=== PATIENT | female | born 1930 | race Caucasian/White ===

== ENCOUNTER 2018-06-05 01:27 | Inpatient (IN) | payer MEDICARE ==
[2018-06-05] MEDS ORDERED: Ondansetron INJ* 2 MG/ML VIAL IV PRN ×2 (02:00→18:42)
[2018-06-05] MEDS ORDERED: Al Hydrox/Mg Hydrox/Simet LIQ* 30 ML UDC PO PRN (02:00)
[2018-06-05 02:09] LABS: ABS Basophils 0 10^3/ul (0-0.2); ABS Eosinophils 0 10^3/ul (0-0.6); ABS Lymphocytes 1.3 10^3/ul (1.0-4.8); ABS Monocytes 0.4 10^3/ul (0-0.8); ABS Neutrophils 5.8 10^3/ul (1.5-7.7); ABS Nucleated RBC 0 10^3/ul; Eosinophil % 0 %; Hematocrit 41 % (33-41); Hemoglobin 13.9 g/dL (12.0-16.0); Lymphocyte % 17.2 %; Mean Corpuscular HGB Conc 34 g/dL (31-36); Mean Corpuscular Hemoglobin 29 pg (27-31); Mean Corpuscular Volume 85 fL (80-97); Mean Platelet Volume 9.7 fL (7.4-10.4); Nucleated Red Blood Cells % 0; Platelet Count 227 10^3/uL (150-450); Red Blood Count 4.83 10^6 /uL (3.70-4.87); Red Cell Distribution Width 15 % (10.5-15); White Blood Count 7.5 10^3/uL (3.5-10.8)
[2018-06-05 02:19] LABS: Activated Partial Thrombo Time 36.6 seconds (26.0-36.3); INR 1.24 (0.82-1.09)
[2018-06-05 02:32] LABS: ALT 12 U/L (7-52); AST 12 U/L (13-39); Albumin 3.7 g/dL (3.2-5.2); Albumin/Globulin Ratio 1.3 (1-3); Alkaline Phosphatase 69 U/L (34-104); Anion Gap 11 mmol/L (2-11); BUN/Creatinine Ratio 23.2 (8-20); Blood Urea Nitrogen 16 mg/dL (6-24); CO2 Carbon Dioxide 28 mmol/L (22-32); Calcium 8.8 mg/dL (8.6-10.3); Chloride 105 mmol/L (101-111); EGFR African American 96.9 (>60); EGFR Non-African American 80.1 (>60); Globulin 2.8 g/dL (2-4); Glucose 164 mg/dL (70-100); Potassium 3.3 mmol/L (3.5-5.0); Sodium 144 mmol/L (135-145); Total Protein 6.5 g/dL (6.4-8.9)
[2018-06-05 02:34] LABS: Troponin I 0.14 ng/mL (<0.04)
[2018-06-05] MEDS ORDERED: Potassium Chlor TAB* 20 MEQ TAB.ER PO ONE ×2 (02:43→06:25)
[2018-06-05] MEDS: Clopidogrel TAB* 75 MG PO SCH ×2 (03:46→09:58)
--- NOTE | 2018-06-05 05:00 | HP ---
CC: Jayshree Rene MD* HISTORY AND PHYSICAL: DATE OF ADMISSION: 06/05/18 TIME OF EVALUATION: 0200. PRIMARY CARE PHYSICIAN: Jayshree Rene MD. CHIEF COMPLAINT: Chest pain and shortness of breath. HISTORY OF PRESENT ILLNESS: This is an 88-year-old female with past medical history of congestive heart failure and hypertension who presented to the ICU as a direct admission from [facility] for positive troponin. The patient was admitted on 06/04/18 for complaints of progressive shortness of breath and chest pain. On admission, she was found to have chest x-ray reading suggestive of congestive heart failure. EKG also showed second-degree heart block, which is new for her, and she was also hypertensive in the 200s. Her initial cardiac enzymes were unremarkable, so she was admitted into [facility] for diuresis. Her repeat troponin was elevated and they were concerned about this chest pain, so they requested direct admission in the setting of her second -degree heart block and bradycardia in the 30s. The patient was directly admitted to the ICU. On arrival, the patient is currently chest pain free, she is nauseated, and she is in heart block with a heart rate in the 30s. She states she has had for the past 2 nights this shortness of breath and some epigastric pain radiating across both sides of her chest. She does have a history of esophageal stricture. She thought maybe that was what it was related to. She states she cannot lie flat, that she sleeps with 8 pillows. She sits on the edge of the bed. She is unsure about her weight. She does not weigh herself, but she has noted lower extremity swelling. She is nauseated and she is vomiting up frothy sputum. She has had several hospitalizations, she states, at [facility] last month, 1 for UTI; which she states was not really UTI, and also for influenza. Otherwise, remaining review of systems is negative. PAST MEDICAL HISTORY: 1. History of congestive heart failure. 2. History of fatty liver disease. 3. History of small-bowel obstruction. 4. Hypertension. 5. Metabolic syndrome. 6. Morbid obesity. 7. Multinodular goiter. 8. Hypothyroidism. 9. History of transient global amnesia. 10. Anxiety. 11. History of esophageal stricture s/p dilatation MEDICATIONS: According to the records at [facility]: 1. Xanax 0.25 mg b.i.d. as needed. 2. Synthroid 50 mcg daily. 3. Vitamin B12 at 1000 mcg daily. 4. Tylenol 325 mg as needed. 5. Cholecalciferol/vitamin D 3 times by mouth b.i.d. 6. Fluticasone 50 mcg b.i.d. 7. Nitro sublingual. 8. Ranitidine 150 mg p.o. b.i.d. 9. Diclofenac 4 g 4 times a day as needed. 10. Beclomethasone spray b.i.d. 11. Metoprolol tartrate 100 mg p.o. b.i.d. 12. Clonidine 0.2 mg p.o. b.i.d. 13. Benzonatate 200 mg p.o. t.i.d. as needed for cough. 14. Meclizine 25 mg b.i.d. as needed for vertigo. ALLERGIES: AMLODIPINE, ATORVASTATIN, DEPAKOTE, CODEINE, ESOMEPRAZOLE, HYDROCHLOROTHIAZIDE, IBUPROFEN, PAROXETINE, PENICILLIN, BRIMONIDINE, PROPOXYPHENE, SHELLFISH ALLERGY, SIMVASTATIN, SPIRONOLACTONE, TRAMADOL, LOSARTAN. FAMILY HISTORY: Reviewed and noncontributory. SOCIAL HISTORY: The patient is home-bound. She lives alone, but she has several family members who check on her frequently including her son, daughter- in-law, and grandson. She ambulates with a walker and a cane. No tobacco, alcohol, or illicit drug use history. Her son is her healthcare proxy. Code Status: She states she would like to be a DNR/DNI. REVIEW OF SYSTEMS: Fourteen-point review of systems was as mentioned in the HPI ; otherwise, negative. PHYSICAL EXAMINATION GENERAL: In no acute distress, mildly anxious. VITAL SIGNS: Temp 98.2, pulse rate 39, respiratory rate 16, oxygen saturation 93% on 2 L, and blood pressure 176/60. HEENT: Head normocephalic. Pupils are equal and reactive, anicteric. Oropharynx: Mucous membranes are moist. NECK: Supple without lymphadenopathy. RESPIRATORY: Diminished breath sounds bilaterally. Bibasilar rales. No increased work of breathing. CARDIAC: Bradycardia with systolic murmur heard throughout. ABDOMEN: Morbidly obese, soft, nontender, and nondistended. EXTREMITIES: +2 pretibial edema, +1 DP. NEUROLOGIC: Alert, awake, and oriented x3. No gross focal neurologic deficits. DIAGNOSTIC STUDIES/LAB DATA: Radiographic Data: EKG: I suspect this is a second-degree type II heart block. Laboratory Data: White count 7.5, hemoglobin 13.9, hematocrit 41, platelets 227. INR is 1.24. Sodium 144, potassium 3.3, chloride 105, bicarb 28, BUN 16, creatinine 0.69, glucose 164. Troponin 0.14. ASSESSMENT: This is an 88-year-old female with a past medical history of congestive heart failure and hypertension who presented as a direct admission to the ICU from [facility] for chest pain, shortness of breath, and a positive troponin. 1. Chest pain with shortness of breath. Assessment: Suspect this is multifactorial. She is in what appears to be second-degree Mobitz type II heart block, which may be contributing to her congestive heart failure, chest pain, and demand ischemia with her bumped troponins. Currently, she is chest pain free. She got a dose of Lovenox at [facility]. Plan: I am going to get a chest x-ray. We will continue her on Lovenox. We will keep her n.p.o. We will contact cardiology to discuss if the patient is a candidate for pacemaker and further evaluation. In the interim, we will hold her metoprolol and her clonidine in the setting of her heart block, and we will also order an echocardiogram as well. We will follow up on her chest x-ray. In the setting of a heart block, I would be careful with any further diuresis at this time. We will replete her potassium, waiting on magnesium as well. 2. Chronic medical problems. We will resume her Xanax, Synthroid, fluticasone. 3. FEN. We will keep the patient n.p.o. We will hold off on fluids in the setting of her heart failure. 4. DVT prophylaxis. The patient scores high risk. She got a dose of Lovenox. We will continue Lovenox for now. 5. Code status. The patient confirms she is a DNR/DNI. PATIENT TIME: Greater than 45 minutes doing the history and physical, more than half the time was spent in direct patient contact and in critical care time. [id number]/[facility] #: [id number] SUSANNE
[2018-06-05 05:52] LABS: TSH (Thyroid Stimulating Horm) 0.57 mcIU/mL (0.34-5.60)
[2018-06-05] MEDS ORDERED: Levothyroxine TAB* 50 MCG TAB PO SCH (06:00)
[2018-06-05] MEDS ORDERED: Furosemide IV* 10 MG/ML 2 ML VIAL (20 MG) IV ONE ×2 (06:16→06:24)
--- NOTE | 2018-06-05 09:01 | ECHO ---
*[facility]* [place] [address] Fax #: [phone] Transthoracic Echocardiogram Patient: Eduardo Height: 61 in / Marine Ramirez 154.9 cm : 1930 Weight: 209.6 lb / Study Date: 06/05/2018 95.3 kg Age: 88 BP: 160 / 68 Gender: F BMI/BSA: 39.7 HR: 35 bpm kg/m^2 / 1.93 m^2 *Connie Scratcher: * Tracy Umanzor *Referring Physician: * Maria Victoria Castaneda *Reading Physician: * Lamin Garcia Indications: Congestive Heart Failure. History: Congestive heart failure. Risk factors: Hypertension. Obese. Conclusions Summary: 1. Impressions: No previous study was available for comparison. 2. Left ventricle: The cavity size is normal. Wall thickness is mildly increased. Systolic function is normal. The estimated ejection fraction is 55-60%. Doppler parameters are consistent with abnormal left ventricular relaxation (grade 1 diastolic dysfunction). 3. Right ventricle: The cavity size is moderately dilated. 4. Left atrium: The atrium is mildly dilated. 5. Mitral valve: There is mild regurgitation. 6. Aortic valve: There is trivial regurgitation. 7. Tricuspid valve: There is trivial regurgitation. 8. Pulmonic valve: There is mild regurgitation. Study data: Transthoracic echocardiogram. Procedure: Transthoracic echocardiography was performed. Image quality was fair. Complete 2D, spectral Doppler, and color flow Doppler. Location: Bedside. Patient status: Inpatient. Patient room number: ICU-12. Rhythm: Heart block. Findings Left ventricle: The cavity size is normal. Wall thickness is mildly increased. Systolic function is normal. The estimated ejection fraction is 55-60%. Wall motion is normal; there are no regional wall motion abnormalities. Doppler parameters are consistent with abnormal left ventricular relaxation (grade 1 diastolic dysfunction). Right ventricle: The cavity size is moderately dilated. Systolic function is normal. The tricuspid jet envelope definition is inadequate for estimation of RV systolic pressure. There are no indirect findings (abnormal RV volume or geometry, altered pulmonary flow velocity profile, or leftward septal displacement) which would suggest moderate or severe pulmonary hypertension. Left atrium: The atrium is mildly dilated. Right atrium: The atrium is mildly dilated. Mitral valve: The leaflets are mildly thickened. There is no evidence of stenosis. There is mild regurgitation. The peak diastolic gradient is 2.9 mm Hg. Aortic valve: The annulus is calcified. The valve is trileaflet. Focal thickening involving the noncoronary cusp. There is no evidence of stenosis. There is trivial regurgitation. The ratio of LVOT to aortic valve peak velocity is 0.59. The ratio of LVOT to aortic valve mean velocity is 0.6. The mean systolic gradient is 5.0 mm Hg. The peak systolic gradient is 12.0 mm Hg. Tricuspid valve: The leaflets are mildly thickened. There is no evidence of stenosis. There is trivial regurgitation. Pulmonic valve: The leaflets are normal thickness. There is no evidence of stenosis. There is mild regurgitation. The peak systolic gradient is 4.0 mm Hg. Aorta: Ascending aorta: The ascending aorta is appears normal. Aortic arch: The aortic arch is appears normal. The aortic root is not dilated. Pericardium: There is no pericardial effusion. Pulmonary arteries: The main pulmonary artery is normal-sized. Systemic veins: Inferior vena cava: The vessel is dilated. The respirophasic diameter changes are in the normal range (>= 50%). Pulmonary veins: Not well visualized. Measurements Left ventricle Value Ref Right atrium Value Ref IRINA, LAX 4.6 cm 3.8 - 5.2 SI dim, ES 5.3 cm 3.4 - ESD, LAX 2.9 cm 2.2 - 3.5 5.3 FS, LAX 36 % 27 - 45 ML dim, ES, A4C (H) 4.5 cm 2.6 - PW, ED, LAX (H) 1.1 cm 0.6 - 0.9 4.4 PW/ID, ED, LAX 0.25 --------- IRINA 4.6 cm 3.8 - 5.2 Aortic valve Value Ref ESD 2.9 cm 2.2 - 3.5 Florinda diam, ED 1.8 cm ------- FS 36 % 27 - 45 Florinda diam/bsa, ED 0.9 cm/m^2 ------- PW, ED (H) 1.1 cm 0.6 - 0.9 Peak v, S 1.72 m/sec ------- IVS/PW, ED 1.04 --------- Mean v, S 1.05 m/sec ------- PW/ID, ED 0.25 --------- VTI, S 37.8 cm ------- EF 66 % 54 - 74 Mean grad, S 5.0 mm Hg ------- Mass (H) 193 g 66 - 150 Peak grad, S 12.0 mm Hg ------- Mass/bsa (H) 100 g/m^2 44 - 88 LVOT/AV, Vpeak 0.59 ------- Mass/ht 124.77 g/m --------- ratio Mass/ht^2.7 59.27 g/m^2.7 --------- E', lat florinda, TDI (L) 8.1 cm/sec >=10.0 Mitral valve Value Ref E/e', lat florinda, 10 --------- Peak E 0.85 m/sec --- ---- TDI Peak A 1.03 m/sec ------- E', med florinda, TDI (L) 5.7 cm/sec >=7.0 Decel time 174 ms ------- E/e', med florinda, 15 --------- Peak grad, D 2.9 mm Hg --- ---- TDI Peak E/A ratio 0.8 ------- E', avg, TDI 6.9 cm/sec --------- E/e', avg, TDI 12 <=14 Pulmonic valve Value Ref KY v, ED 1.26 m/sec ------- LVOT Value Ref KY grad, ED 6 mm Hg ------- Peak charo, S 1.02 m/sec --------- Mean charo, S 0.63 m/sec --------- Aortic root Value Ref Mean grad, S 2 mm Hg --------- Root diam 2.8 cm <4.1 Ventricular septum Value Ref Ascending aorta Value Ref IVS, ED, LAX (H) 1.2 cm 0.6 - 0.9 AAo AP diam, S 2.9 cm ------- IVS, ED (H) 1.2 cm 0.6 - 0.9 AAo AP diam/bsa, S 1.5 cm/m^2 ------- Right ventricle Value Ref Aortic arch Value Ref IRINA, LAX 4.0 cm --------- Arch diam 2.9 cm ------- IRINA minor ax, A4C (H) 5.1 cm 1.9 - 3.5 Arch diam/bsa 1.5 cm/m^2 ------- mid Decending aorta Value Ref Left atrium Value Ref Seth peak charo 1.02 m/sec ------- AP dim, ES 3.70 cm 2.70 - 3.80 Inferior vena cava Value Ref ML dim, A4C 5.1 cm --------- Diam 2.4 cm ------- Vol/bsa, ES, 1-p 39 ml/m^2 11 - 40 A4C Vol/bsa, ES, A/L (H) 37 ml/m^2 16 - 34 Legend: (L) and (H) cedrick values outside specified reference range. Prepared and electronically signed by Lamin Garcia 06/05/2018 08:58
[2018-06-05] MEDS ORDERED: Heparin DRIP 25,000 UNITS(*) 25,000 UNITS/500 ML BAG IV SCH (09:30)
[2018-06-05 09:37] LABS: Troponin I 0.16 ng/mL (<0.04)
[2018-06-05] MEDS ORDERED: Heparin VIAL(*) 5000 UNITS/ML VIAL (FIVE THOUSAND) ONE (09:45)
[2018-06-05] MEDS: ALPRAZolam TAB* 0.25 MG PO PRN ×2 (09:51→18:57)
[2018-06-05] MEDS: Famotidine TAB* 20 MG PO SCH (09:51)
[2018-06-05] MEDS: Aspirin 81 mg CHEW TAB* 81 MG TAB.CHEW PO SCH (09:51)
[2018-06-05] MEDS ORDERED: Lidocaine 1% INJ* 10 MG/ML 30 ML SDV ONE (11:22)
[2018-06-05] MEDS ORDERED: fentaNYL* 50 MCG/ML 2 ML VIAL (100 MCG VIAL) ONE (11:22)
[2018-06-05] MEDS ORDERED: Midazolam* 1 MG/ML 5 ML VIAL (5 MG) ONE (11:22)
[2018-06-05] MEDS ORDERED: Iohexol 350 (CONTRAST) 200 ML MDV IV ONE (11:23)
[2018-06-05] MEDS ORDERED: Heparin 2 UNITS/ML IVPREMIX* 3,000 UNIT/1,500 ML BAG IV ONE (11:23)
[2018-06-05] MEDS ORDERED: nitroGLYCERIN DRIP* 0 MCG/0 ML BTL ONE (11:25)
[2018-06-05] MEDS ORDERED: Heparin(*) 1000 UNIT/ML 10 ML VIAL CATH LAB IV ONE (11:25)
[2018-06-05] MEDS ORDERED: Enoxaparin(*) 100 MG/ML SYR SUBCUT SCH (11:30)
[2018-06-05] MEDS ORDERED: Clindamycin 600 MG/D5W BAG(*) 600 MG/50 ML BAG IV ONE (12:00)
[2018-06-05] MEDS ORDERED: NS 0.9% 1000 ML** 1,000 ML IV SCH (12:30)
--- NOTE | 2018-06-05 16:37 | CATH ---
CC: Dr. Artemio Garcia; Dr. Maggie Mendoza* CARDIAC CATHETERIZATION REPORT: DATE OF PROCEDURE: 06/05/18 INDICATION FOR PROCEDURE: Asked by Dr. Garcia to perform diagnostic coronary catheterization in light of patient presenting with abnormal troponin elevations with second-degree heart block and reported epigastric discomfort felt by Dr. Garcia to be a possible anginal equivalent. PROCEDURE: Coronary arteriography and left heart catheterization. Left ventriculography was not performed as the patient already had a diagnostic transthoracic echocardiogram. CONSENT: The patient was interviewed and examined in the intensive care unit, where the risks and benefits were explained to her and her family. It should be noted that we actually had to reverse a DNR status to perform the procedure, which she agreed to do. APPROACH UTILIZED: The patient's right radial artery was diminished, but in addition, the patient had marked tremors of the right arm that she could not control and as such the decision was made to use a right femoral artery approach. PRE-CARDIAC CATHETERIZATION LABORATORY RESULTS: Hemoglobin and hematocrit of 13.9 and 41, a platelet count of 227,000. BUN and creatinine of 16 and 0.69. EQUIPMENT UTILIZED: 1. The right femoral artery sheath - an 11 cm 5-[place] Zakiya sheath. 2. The diagnostic coronary catheters were a FL 3.5 curve left coronary catheter and an FR 4.0 curve coronary catheter. 3. Left heart catheterization catheter was a 5-[place] PIG 145-degree angled catheter. 4. The diagnostic wire utilized was a 0.035 x 175 cm length J-tipped wire. 5. The closure device utilized was a Mynx 5-[place] closure device. DESCRIPTION OF PROCEDURE: The patient was brought to the cardiovascular laboratory where a formal time-out was performed. She was prepped and draped in sterile fashion and the right groin area was anesthetized with 1% lidocaine. The right femoral artery was cannulated and the sheath was placed. Following this, coronary arteriography was performed followed by left heart catheterization. Following this, the catheter was removed and an injection was made into the right femoral artery sheath to assess eligibility to utilize closure device. It was found to be acceptable for this and as such a 5-[place] Mynx closure device was deployed with good hemostasis. The patient was stable at the end of the case and brought back to the intensive care unit. The total contrast utilized was 45 cc of Omnipaque dye. The radiation exposure included 3.1 minutes of fluoro time. The air kerma radiation was 738 milligray. The DAP radiation was 4531 microgray per meter squared. RESULTS: HEMODYNAMIC DATA: Left heart catheterization: Central aortic pressure recorded at 188/53 with a mean of 109. Left ventricular pressure 186 over left ventricular end- diastolic pressure of 25. CORONARY ARTERIOGRAPHY: A. Left coronary artery: 1. Left main - widely patent with a mild 10% ostial narrowing. 2. Left anterior descending artery - the left anterior descending had mild-to- moderate luminal narrowing seen in the proximal portion of the vessel with degree of stenosis approximately 35%. The mid portion of the vessel had a 45% to 50% narrowing noted. The diagonal branches were small caliber vessels, but no critical focal stenoses were seen. 3. Circumflex artery - a nondominant vessel supplying a small first, second and third obtuse marginal branch followed by a moderate trifurcating low- lying posterior left ventricular branch. There was mild luminal irregularity in the proximal portion of 25% to 30% with minimal 20% narrowing seen in the mid segment of the circumflex. B. Right coronary artery - a dominant vessel supplying the PDA and 2 posterior left ventricular branches. There were minimal luminal irregularities seen in the proximal and mid portion, but no focal significant stenoses were noted. OVERALL ASSESSMENT: No significant stenotic coronary artery disease with mild-to- moderate narrowing in the proximal and moderate narrowing in the mid LAD as described above. Increased left ventricular end-diastolic pressure noted suggesting the presence of decreased left ventricular diastolic compliance. This information was shared with Dr. Garcia and Dr. Mendoza, who are the primary cardiologists involved with her case. [id number]/[facility] #: [id number] [facility]OSPITALSherry
--- NOTE | 2018-06-05 16:45 | CONS ---
AMENDED REPORT NOW INCLUDES DESIGNATED COSIGNER SETUP CONSULTATION REPORT: DATE OF CONSULT: 06/05/18 PRIMARY SCALE EXPERT: Historically, Dr. Kaba. PRIMARY CARE PHYSICIAN: Dr. Jayshree Rene with Dr. Ruiz' practice. ATTENDING PHYSICIAN: Dr. Garcia, Cardiology.* (DICTATED BY JAMES TOLEDO NP ) REASON FOR CONSULT: High-degree AV block, troponinemia, complaints of chest pain. HISTORY OF PRESENT ILLNESS: This is a pleasant 88-year-old female patient with a notable history of prior positive stress test under the care of Dr. Kaba, formerly on aspirin, Plavix, and Lopressor therapy in addition to hypertension, hypothyroidism, hyperlipidemia, anxiety, and depression. The patient states that she was hospitalized in April of 2018 due to urinary tract infection in addition to influenza. She states that she was discharged home where she resides independently and for the past 2 weeks, she has been noting intermittent epigastric discomfort that she dismissed as indigestion. She states that she would take Pepto-Bismol with some relief. Pain was not related to ingestion of food or exertion. She states that she would occasionally get associated lightheadedness. Apparently, symptomatology was escalated on Saturday evening around 6:30 p.m. when she was notified that her cousin had . She states that she had a "severe episode." She called her son, who lives on the same road as her, and was instructed to go to the hospital; however, she opted to stay at home. The following day, on 06/03/18, apparently chest pain has been progressive with associated nausea and weakness. Thus, she presented to [facility]. Upon further review of [facility] medical records, it appears that patient had recurrent intermittent chest pain and had evidence of high-degree AV block. She was given aspirin 325 mg in addition to Lovenox therapy and was sent to [facility] for further evaluation. While being evaluated in the intensive care unit, her cardiac enzymes were cycled and are now positive. Most recent troponin value was 0.16. She denies any recurrent complaints of chest pain since yesterday. She has been given IV Lasix with, according to the nurse caring for her, adequate urine output. She appears anxious. She denies any episodes of syncope. Apparently, in the past, when she had a positive stress test, she was having chest pain at that time. Last echocardiogram according to [facility] was in 2013. At that time, LVEF was 60 % to 65% with mild ventricular hypertrophy, trace mitral regurgitation, trace tricuspid regurgitation, and right ventricle is hypokinetic. PAST MEDICAL HISTORY: Includes: 1. Hypertension. 2. Coronary artery disease. 3. GERD. 4. Vitamin D deficiency. 5. Anxiety, depression. 6. Hyperlipidemia. 7. Hypothyroidism. 8. History of failed stress test. 9. Syncope in the 1950s while dancing. PAST SURGICAL HISTORY: Includes: 1. Trigger finger release. 2. Hysterectomy. 3. Cholecystectomy. 4. Thyroidectomy. 5. Appendectomy. HOME MEDICATIONS: Include: 1. Lopressor 100 mg p.o. b.i.d. 2. Aspirin 81 mg p.o. a day. 3. Clonidine 0.2 mg p.o. b.i.d. 4. Xanax 0.25 mg t.i.d. 5. Levothyroxine therapy. ALLERGIES: Listed in [facility] include PENICILLIN, which causes hives; NORVASC, unknown reaction; CECLOR, unknown reaction; CODEINE, unknown reaction; DARVOCET , unknown reaction; HYDROCHLOROTHIAZIDE, unknown reaction; PAXIL, unknown reaction; SHELLFISH, which causes hives; SIMVASTATIN, unknown reaction; ALDACTONE, unknown reaction; TRAMADOL, unknown reaction; MOTRIN, unknown reaction. FAMILY HISTORY: Noncontributory. SOCIAL HISTORY: The patient is , lives home alone. She ambulates with a cane and a walker. Denies falling in the home. She never smoked tobacco products. She denies alcohol abuse or drug abuse. She has extensive family support. Her son and onjullqt-sh-hhp live down the road from her and dispense her medications. Her yljpoodf-mm-pah, Elaine, is a registered nurse REVIEW OF SYSTEMS: All systems have been reviewed and otherwise negative except what is above mentioned in the HPI. PHYSICAL EXAM: Vital Signs: Temperature 97.3, heart rate 38, respirations 21, blood pressure 174/74. General: The patient was lying in bed upon entering the room, offers no complaints, appears alert and oriented x3. Cooperative with exam, although she is anxious. HEENT: Head is atraumatic, normocephalic. Oral mucosa is moist. Tongue is midline. Neck: Supple. Trachea midline. No JVD. No carotid bruits. Cardiac: Normal S1, S2. Regular rate and rhythm. No murmur, gallop, or rub noted. Lungs: Auscultated posteriorly. No evidence of adventitious breath sounds. Respirations are nonlabored. /GI: Abdomen is soft, nontender, nondistended. Normoactive bowel sounds x4. Peripheral Vascular: 2+ dorsalis pedis and brachial pulses palpated bilaterally symmetrically. Skin: Intact. No evidence of jaundice, rashes, or ecchymosis appreciated. DIAGNOSTIC STUDIES/LAB DATA: Troponin #2 was elevated at 0.14, troponin #3 at 0.16. Sodium 144, potassium 3.3, chloride 105, carbon dioxide 28, glucose 164, magnesium 2, creatinine 0.69. BNP is greater than 1300. TSH 0.57. INR 1.24. White count 7.5, hemoglobin 13.9, hematocrit 41, platelets 227. EKG, 06/05/18, demonstrates second-degree AV block with right bundle branch block, rate 61. No ST-segment elevation appreciated. ECG from [facility] reviewed. The patient was having intermittent high-degree AV block. Echocardiogram, 06/05/18, revealed LVEF of 55% to 60%, mild mitral regurgitation , trivial aortic insufficiency, trivial tricuspid regurgitation. No aortic stenosis. Normal wall motion. No regional wall motion abnormality. ASSESSMENT AND PLAN: 1. Symptomatic high-degree atrioventricular block in the setting of troponin elevation and intermittent 2-week episode of acceleration of epigastric discomfort. The patient had a prior history of a "failed stress test." She was previously on DAP therapy and tolerated it. She has not seen Cardiology since Dr. Kaba moved. Given history of prior failed stress test, hypertension, hyperlipidemia, and troponin elevation with complaints of accelerating chest discomfort, the patient is to have left heart catheterization today with Dr. Patric Ca. We will discontinue Plavix, initiate aspirin 81 mg a day, start IV heparin therapy, and follow closely. The patient and her family have opted to rescind her DNR status and she is currently a full code. 2. Symptomatic high-degree atrioventricular block: The patient is hemodynamically stable. In fact, she is actually hypertensive. Lopressor has been on hold since Saturday. We will continue to monitor on telemetry and make formal recommendations after cardiac catheterization. 3. History of hypertension. Systolic blood pressure currently in the 170s, will be evaluated after cardiac catheterization. 4. Troponinemia. Troponin #3 was 0.16. The patient is to undergo left heart catheterization. IV heparin therapy was initiated as well as aspirin 81 mg a day. We will reevaluate after cardiac catheterization. 5. Disposition: Pending course. Dr. Garcia is personally seeing and examining the patient and agrees with the above assessment and plan. Thank you for this kind consultation. Any future questions or concerns, please do not hesitate to contact our service. JAMES TOLEDO, VENDING MACHINE TECHNICIAN [id number]/[facility] #: [id number] SUSANNE
--- NOTE | 2018-06-05 16:48 | PN ---
Subjective Date of Service: 06/05/18 Interval History: Pt admitted early this morning. She denies chest pain, SOB, or light headedness. She is very tearful and anxious about the possibility of cardiac procedures given a history of her aunt dying during a cardiac cath 20 years ago. TTE with diastolic dysfunction. LHC without significan stenotic CAD, with [id number] narrowing in the proximal and moderate narrowing in the mid-LAD. Heparin drip stopped. Objective Active Medications: Acetaminophen (Tylenol Tab*) 650 mg PO Q4H PRN PRN Reason: FEVER/PAIN Al Hydrox/Mg Hydrox/Simethicone (Maalox Plus*) 30 ml PO Q6H PRN PRN Reason: INDIGESTION Alprazolam (Xanax Tab*) 0.25 mg PO Q8H PRN PRN Reason: ANXIETY Last Admin: 06/05/18 09:51 Dose: 0.25 mg Aspirin (Aspirin 81 Mg Chew Tab*) 81 mg PO DAILY [facility] Last Admin: 06/05/18 09:51 Dose: 81 mg Famotidine (Pepcid Tab*) 20 mg PO DAILY [facility] Last Admin: 06/05/18 09:51 Dose: 20 mg Levothyroxine Sodium (Synthroid Tab*) 50 mcg PO DAILY@0600 [facility] Last Admin: 06/05/18 05:15 Dose: 50 mcg Mometasone Furoate (Asmanex 220 Mcg Mdi *) 1 puff INH QPM [facility] Ondansetron HCl (Zofran Inj*) 4 mg IV Q4H PRN PRN Reason: NAUSEA/VOMITING Vital Signs - 8 hr 06/05/18 06/05/18 06/05/18 09:00 09:51 10:00 Temperature Pulse Rate 70 Respiratory 17 21 14 Rate Blood Pressure 172/67 (mmHg) O2 Sat by Pulse 93 Oximetry 06/05/18 06/05/18 06/05/18 10:24 10:53 11:00 Temperature Pulse Rate 38 38 Respiratory 24 20 19 Rate Blood Pressure 169/121 165/57 (mmHg) O2 Sat by Pulse 93 91 Oximetry 06/05/18 06/05/18 06/05/18 11:02 11:29 11:31 Temperature 98 F Pulse Rate 37 39 Respiratory 23 14 Rate Blood Pressure 162/56 149/67 (mmHg) O2 Sat by Pulse 94 93 Oximetry 06/05/18 06/05/18 06/05/18 12:45 12:54 12:56 Temperature 97.6 F 97.5 F Pulse Rate 38 66 Respiratory 21 20 Rate Blood Pressure 173/70 173/70 (mmHg) O2 Sat by Pulse 100 100 Oximetry 06/05/18 06/05/18 06/05/18 13:00 13:09 13:36 Temperature Pulse Rate 36 39 63 Respiratory 15 13 15 Rate Blood Pressure 170/47 123/93 (mmHg) O2 Sat by Pulse 100 100 100 Oximetry 06/05/18 06/05/18 06/05/18 14:00 14:04 14:32 Temperature Pulse Rate 37 37 37 Respiratory 15 15 15 Rate Blood Pressure 149/71 153/56 (mmHg) O2 Sat by Pulse 100 100 Oximetry 06/05/18 15:00 Temperature Pulse Rate 37 Respiratory 18 Rate Blood Pressure (mmHg) O2 Sat by Pulse Oximetry Oxygen Devices in Use Now: Nasal Cannula Appearance: anxious, tearful, otherwise NAD Ears/Nose/Mouth/Throat: Mucous Membranes Moist Neck: NL Appearance and Movements; NL JVP Respiratory: Clear to Auscultation Cardiovascular: - - bradycardic, occasional dropped beats; no mgr Abdominal: NL Sounds; No Tenderness; No Distention Extremities: - - 1+ edema around ankles, symmetric Neurological: Alert and Oriented x 3 Result Diagrams: 06/05/18 01:56 06/05/18 01:56 Microbiology and Other Data: Microbiology 06/05/18 01:33 Nasal Screen MRSA (PCR) - Final Nasal Mrsa Not Detected Assess/Plan/Problems-Billing Assessment: 88W with HFpEF, HTN, hypothyroid, anxiety, obesity, NAFLD, presents as a direct transfer from [place] for 2nd degree heart block, after presenting there with SOB and chest pain. She was found with volume overload and severe HTN, and had diuresis at OSH before transfer. - Patient Problems (1) Mobitz (type) II atrioventricular block Comment: Had history of positive stress test, but [facility] here without significant CAD. - likely for PPM tomorrow - avoid rate-limiting medications - appreciate cardiology - continue on tele with ICU level of monitoring (2) Diastolic heart failure Comment: Seen on echo here, and has history of this but doesn't seem to have been on home diuretics. Received IV Lasix at OSH. - monitor volume status - currently holding further diuretics - monitor lytes and replete prn (3) Hypertension Comment: Allowing for higher BP until patient receive PPM. - consider captopril or hydralazine prn - avoid rate-limiting medications (4) Hypothyroid Comment: Will decrease levothyroxine given low-normal TSH (goal for 88 year old is high-normal or mildly elevated). - cont levothyroxine 25mcg, recheck TSH in early July (5) Anxiety Comment: cont home alprazolam (6) Full code status Comment: Pt initially confirms DNR/DNI, however this was reversed with patient and family on discussion with cardiology. Will continue to reasses.
[2018-06-05] MEDS ORDERED: hydrALAZINE IV* 20 MG/ML VIAL IV SLOW PU PRN (18:42)
[2018-06-05] MEDS ORDERED: Meclizine TAB* 12.5 MG PO PRN (18:59)
[2018-06-05] MEDS ORDERED: traZODone TAB* 50 MG TAB PO PRN (19:00)
[2018-06-05] MEDS: Mometasone 220 MCG MDI INH SCH (20:38)
[2018-06-06] MEDS ORDERED: Haloperidol INJ IV/IM* 5 MG/ML AMP IV SLOW PU PRN (01:29)
[2018-06-06] MEDS ORDERED: hydrALAZINE IV* 20 MG/ML VIAL IV SLOW PU PRN (04:58)
[2018-06-06] MEDS ORDERED: hydrALAZINE IV* 20 MG/ML VIAL ONE (04:58)
[2018-06-06] MEDS: Levothyroxine TAB* 25 MCG TAB PO SCH (05:09)
[2018-06-06] MEDS ORDERED: Levothyroxine TAB* 25 MCG TAB PO SCH (06:00)
[2018-06-06 06:15] LABS: BUN/Creatinine Ratio 28.2 (8-20); Calcium 8.7 mg/dL (8.6-10.3); EGFR African American 93.8 (>60); EGFR Non-African American 77.5 (>60); Magnesium 1.9 mg/dL (1.9-2.7); Potassium 3.6 mmol/L (3.5-5.0)
[2018-06-06] MEDS ORDERED: Diazepam TAB(*) 5 MG PO PRN (07:07)
[2018-06-06] MEDS ORDERED: NS 0.9% 1000 ML** 1,000 ML IV SCH (07:15)
--- NOTE | 2018-06-06 08:44 | CONSULT ---
Cardiology Note RN approached me around 0830 about patient having confusion and being combative. She was told in report that the patient has dementia. I did not capture this while reviewing prior medical records or in conversation with her family yesterday. She just received Haldol and is confused unable to state where she is or her son's names. There is no apparent focal neuro deficit but she is not following commands. Given she is s/p [facility] And was on Lovenox then IV heparin will check STAT CT head. I will notify family and Dr. Mendoza.
[2018-06-06] MEDS: Aspirin 81 mg CHEW TAB* 81 MG TAB.CHEW PO SCH (10:34)
[2018-06-06] MEDS: Famotidine TAB* 20 MG PO SCH (10:34)
[2018-06-06] MEDS ORDERED: LORazepam INJ* 2 MG/ML 1 ML VIAL IV PUSH ONE (10:42)
[2018-06-06] MEDS ORDERED: Lorazepam PYXIS KEY PRN (10:42)
[2018-06-06] MEDS ORDERED: Clindamycin 600 MG/D5W BAG(*) 600 MG/50 ML BAG IV ONE (11:45)
[2018-06-06] MEDS ORDERED: Lorazepam PYXIS KEY ONE ×2 (14:44→15:14)
[2018-06-06] MEDS ORDERED: LORazepam INJ* 2 MG/ML 1 ML VIAL ONE ×2 (14:45)
[2018-06-06 15:59] LABS: Albumin 3.5 g/dL (3.2-5.2); Albumin/Globulin Ratio 1.3 (1-3); BUN/Creatinine Ratio 23.3 (8-20); Calcium 8.6 mg/dL (8.6-10.3); EGFR African American 90.8 (>60); EGFR Non-African American 75.1 (>60); Globulin 2.6 g/dL (2-4); HDL Cholesterol 45.2 mg/dL; Potassium 3.7 mmol/L (3.5-5.0); Total Bilirubin 0.7 mg/dL (0.2-1.0); Total Protein 6.1 g/dL (6.4-8.9)
[2018-06-06 16:06] LABS: Urine Appearance Turbid; Urine Bacteria Absent (Absent); Urine Bilirubin Negative (Negative); Urine Blood 3+ (Negative); Urine Color Amber; Urine Glucose Negative (Negative); Urine Ketones Negative (Negative); Urine Nitrite Negative (Negative); Urine Protein 2+(100 mg/dL) (Negative); Urine Red Blood Cell 3+(>10/hpf) (Absent); Urine Specific Gravity 1.027 (1.010-1.030); Urine Urobilinogen Negative (Negative); Urine White Blood Cell Trace(0-5/hpf) (Absent)
[2018-06-06 16:09] LABS: Influenza A Molecular NEGATIVE (Negative); Influenza B Molecular NEGATIVE (Negative)
[2018-06-06] MEDS ORDERED: Lidocaine 1% INJ* 10 MG/ML 30 ML SDV ONE ×2 (16:22→17:10)
[2018-06-06] MEDS ORDERED: Iohexol 300* (CONTRAST) 10 ML SDV ONE (16:22)
[2018-06-06] MEDS ORDERED: fentaNYL* 50 MCG/ML 2 ML VIAL (100 MCG VIAL) ONE (16:27)
[2018-06-06] MEDS ORDERED: Midazolam* 1 MG/ML 5 ML VIAL (5 MG) ONE ×2 (16:27→17:12)
[2018-06-06 16:36] LABS: Free T4 0.93 ng/dL (0.61-1.12)
--- NOTE | 2018-06-06 16:37 | CONS ---
CC: Dr. Rene; Dr. Mendoza; Dr. Garcia* CONSULTATION REPORT: DATE OF CONSULT: 06/06/18 PRIMARY CARE PROVIDER: Dr. Rene. PRIMARY BIODIESEL PRODUCTION ASSOCIATE: Dr. Mendoza. REQUESTING PHYSICIAN IN CONSULT: Dr. Mendoza. MY ATTENDING PHYSICIAN: Dr. Silverio Valdez (report being dictated by Jn Gallego NP). REASON FOR CONSULT: Altered mental status, concern for stroke. HISTORY OF PRESENT ILLNESS: I refer you Dr. Castaneda's H and P dictated yesterday. In short, this is an 88-year-old female patient who carries a history of CHF, fatty liver disease, history of SBO, hypertension, metabolic syndrome, morbid obesity, goiter, hypothyroidism, history of TGA, anxiety, and history of esophageal stricture, who came to our ICU yesterday on the morning of 06/05/18 from [place] with complaints of positive troponin. She was admitted on 06/04/18 at [place] for complaints of progressive shortness of breath and chest pain. On admission, she was found to have a chest x-ray with reading suggestive of congestive heart failure. EKG did show a second-degree block, which was new. She was hypertensive in the 200s. The initial [place] were unremarkable, but then they did peak here to 0.19. She was admitted. She was started on IV diuretics. It was noted that she had a second- degree heart block and bradycardia in the 30s. She was on metoprolol for this. The patient was seen by Cardiology. Echo was obtained. She underwent heart catheterization yesterday and initially in the hospital course was doing well; however, yesterday evening right around 8 o'clock at night, it was noted by nursing staff that the patient began acting out, she was profoundly confused, she was combative. The patient became more agitated and confused. She was at her baseline status post cath. There were no reports per the family of focal weakness, difficulty with speech, or facial droop, although it is difficult to get any history from the patient today given the fact that she has received Haldol and Ativan. The patient was noted to be again very restless this morning , swinging, biting at staff here in the ICU, which was not her baseline, and was given Ativan and Haldol. Her baseline per the family who was there said that the patient is notoriously anxious at times, but she does live alone. There have been no reports of memory problems or dementia in the past. She generally is able to take care of herself, she balances her own checkbook, she is not forgetful, she has not gotten lost recently, and there have been no reports of her misplacing her keys or leaving the stove on or things of that nature. The family, they state her memory is pretty good for the most part, she occasionally will forget some things, but because of the altered mental status and concern for possible stroke, we were asked to evaluate in consult. PAST MEDICAL HISTORY: Significant for: 1. CHF. 2. Fatty liver disease. 3. History of SBO. 4. Hypertension. 5. Metabolic syndrome. 6. Obesity. 7. Goiter. 8. Hypothyroidism. 9. TGA. 10. Anxiety. 11. Esophageal stricture. 12. There is a question of diabetes. 13. Hyperlipidemia. PAST SURGICAL HISTORY: She has had: 1. Heart catheterization. 2. Laparoscopic cholecystectomy. 3. Hysterectomy. 4. Thyroidectomy. 5. She did have a broken arm and she is status post ORIF. 6. Appendectomy. CURRENT MEDICATIONS: Include: 1. Tylenol 650 mg every 4 hours as needed. 2. Maalox Plus 30 cc every 6 hours as needed. 3. Xanax 0.25 mg every 8 hours as needed. 4. Aspirin 81 mg daily. 5. Famotidine 20 mg daily. 6. Haldol 5 mg IV every 6 hours as needed. 7. Hydralazine 10 mg IV every 4 hours as needed. 8. Synthroid 50 mcg p.o. daily. 9. Antivert 25 mg every 8 hours as needed. 10. Asmanex 1 puff inhaled q.p.m. 11. Zofran 4 mg every 6 hours as needed. 12. Normal saline 100 cc an hour. 13. Trazodone 50 mg at bedtime as needed. ALLERGIES TO MEDICATIONS: Include AMLODIPINE, ATORVASTATIN, CEFACLOR, CODEINE, NEXIUM, HYDROCHLOROTHIAZIDE, IBUPROFEN, PAXIL, PENICILLINS, PRIMIDONE, PROPOXYPHENE, SHELLFISH, SIMVASTATIN, SPIRONOLACTONE, TRAMADOL, and VALSARTAN. FAMILY HISTORY: Unknown. She is adopted. SOCIAL HISTORY: According to the family, she is not a drinker. She does live alone. She does not smoke. Surrogate decision makers are her sons. REVIEW OF SYSTEMS: I am unable to obtain from the patient directly given her current mental state. PHYSICAL EXAM: Vital Signs: Blood pressure 144/45, pulse 59, respirations 16, O2 sat 96% on 2 L, temperature 98.5. General: At this time, Ms. Clark is an 88- year-old female patient. She is sitting in the ICU bed. She does not appear to be in any acute distress. She will awaken to her name and will follow simple commands only. HEENT: Head: Atraumatic. Eyes: Pupils were equal and reactive. Sclerae anicteric and not pale. Throat: Oral mucosa appears to be dry. No oropharyngeal erythema. Neck was supple. Heart: Sounds S1, S2. She had no murmurs, rubs, or gallops. Lungs: Crackles were noted in the bases. Equal diaphragmatic expansion. Abdomen was soft, flat, nontender. Bowel sounds present. Extremities: Pulses 2+. She had no peripheral edema. Neurologically, again, she is awake to herself only. Her speech is slightly dysarthric. Per the family, it is at her baseline. She does not have teeth. She is unable to be fitted for dentures. She is generally confused. She thinks she is in [place]. She will follow simple commands, but the exam is extremely difficult given the fact that she had recent Haldol and Ativan. She had no obvious drift. She did have difficulty raising her left arm, but it seems like it was limited by pain. Family does state that she has a history of bursitis in the left shoulder. She was able to lift the lower extremities off the bed bilaterally. There was no obvious drift noted there. She did seem to have decreased withdrawal to painful stimuli on the left lower extremity and left upper extremity and on gaze , she may have had a left-sided neglect, but again it is difficult to have her follow complex commands. She had no facial drooping. Her tongue was midline. Reflexes were down throughout. Babinski was equivocal. Again, visual peralta difficult to assess as when asking the patient to open her eyes, she quickly shuts them and drifts off to sleep, again difficult to assess this. Skin was intact. DIAGNOSTIC STUDIES/LAB DATA: WBC of 7.5, RBC 4.83, hemoglobin 13.9, hematocrit 41, platelet count of 227. INR of 1.24, PTT of 36.6. Sodium was 143, potassium 3.6, chloride 105, bicarb 28, BUN 20, creatinine of 0.71, glucose 124 , calcium 8.7, mag 1.9. Troponin was 0.16. TSH normal. She had a brain CT done yesterday, which showed limited study. No acute intracranial pathology. Overall assessment from her heart catheterization: No significant stenotic coronary artery disease with [id number] narrowing in the proximal and moderate narrowing in the mid LAD as described above. Increased left ventricular end-diastolic pressure noted suggesting the presence of decreased left ventricular diastolic compliance. Information was shared with Dr. Garcia and Dr. Mendoza. Transthoracic echo obtained on 06/05/18 showed impression: No previous study for comparison. EF of 55% to 60%, trivial tricuspid regurg, trivial aortic regurg, mild mitral regurg, left atrium dilated, right ventricular cavity is moderately dilated. Chest x-ray obtained, showed constellation of findings suspicious for bronchopneumonia superimposed on COPD, mild pulmonary vascular congestion is not excluded. EKG this morning shows a second-degree AV block with a new superimposed right bundle branch block and left posterior fascicular block, rate of 55. Old medical records were reviewed. ASSESSMENT AND PLAN: Ms. Clark is an 88-year-old female patient presenting initially to [facility] for concerns of elevated troponin and congestive heart failure. She underwent cardiac catheterization yesterday. Yesterday evening around 1999, it was noted that the patient was significantly confused. There was concern for possible cerebrovascular accident and altered mental status and we were asked to evaluate in consult. The patient to our knowledge did not receive any medications during the heart catheterization. She did receive Ativan and Haldol this morning. Going forward, my recommendations at this point are: 1. Altered mental status. Etiology is unclear at this point; however, there is concern for cerebrovascular accident. On exam, she did have some possible left- sided neglect, although exam was extremely difficult given the fact she received Haldol and Ativan. I would like to get an MRI to definitively help rule out cerebrovascular accident. If there is cerebrovascular accident, we will certainly pursue further workup with CTA of the head and neck and repeating an echo with bubble study and placing her on telemetry to monitor for atrial fibrillation. Going forward, I think there could be a delirium component here. I would like to repeat her chest x-ray to make sure there are no developing infiltrates. Also check a urinalysis. Check her T4, folate, ammonia level. Check a CBC and a CMP and also get a urinalysis as well and I will check a procalcitonin and we will continue to follow. We will get neurological checks on the patient as well. Further recommendations depending on followup. 2. Congestive heart failure. Defer the management to the hospitalist and Cardiology. 3. Second-degree Mobitz block. She is scheduled for pacemaker later today. Again, defer to Cardiology. 4. Hypertension. In the setting of a possible cerebrovascular accident, I would treat systolics greater than 200 and diastolics greater than 110, but I would not precipitously drop her blood pressure as this could make possible cerebrovascular accident worse, but again we will know more based on MRI. 5. History of metabolic syndrome. Follow up with her PCP. 6. Hypothyroidism. TSH was stable. 7. Anxiety. Continue supportive care. 8. Diabetes. A1c is pending. 9. Hyperlipidemia. We will check a lipid panel. 10. Code status: She is a do not resuscitate. 11. DVT prophylaxis: Defer to the primary team. 12. Fluids, electrolytes, and nutrition: At this point, I would keep her n.p.o. until her mental status improves. TIME SPENT: On the consult was 60 minutes, greater than half the time was spent [id number] with the patient obtaining my history and physical, other half the time was spent going over the plan of care with the patient and implementing plan of care. I did discuss the plan of care with my attending, Dr. Valdez; he is in agreement. JN GALLEGO, FLAVIO [id number]/CPS #: [id number] SUSANNE
[2018-06-06 16:38] LABS: ABS Basophils 0 10^3/ul (0-0.2); ABS Eosinophils 0.1 10^3/ul (0-0.6); ABS Lymphocytes 2.1 10^3/ul (1.0-4.8); ABS Monocytes 1.1 10^3/ul (0-0.8); ABS Neutrophils 4.7 10^3/ul (1.5-7.7); ABS Nucleated RBC 0 10^3/ul; Eosinophil % 1.2 %; Hematocrit 41 % (33-41); Hemoglobin 13.7 g/dL (12.0-16.0); Lymphocyte % 26.1 %; Mean Corpuscular HGB Conc 33 g/dL (31-36); Mean Corpuscular Hemoglobin 29 pg (27-31); Mean Corpuscular Volume 87 fL (80-97); Mean Platelet Volume 9.7 fL (7.4-10.4); Nucleated Red Blood Cells % 0; Platelet Count 214 10^3/uL (150-450); Red Blood Count 4.71 10^6 /uL (3.70-4.87); Red Cell Distribution Width 16 % (10.5-15)
[2018-06-06 16:44] LABS: Folate 8.93 ng/mL (>3.99)
[2018-06-06] MEDS ORDERED: Metoprolol Tartrate IV* 1 MG/ML 5 ML VIAL ONE (17:46)
--- NOTE | 2018-06-06 18:00 | PN ---
Subjective Date of Service: 06/06/18 Interval History: Events from overnight and today reviewed Increasingly confused after cath yesterday after transferred back to ICU Received haldol this AM prior to my evaluation Seen by cardiology with concern for intracranial bleed s/p cath/heparin products used CT Brain negative for bleed Cardiology consult to neurology and MRI brain ordered which was negative for acute stroke Pt unable to make needs known to this author. Screamed "for the love of god" when woken up. Objective Active Medications: Acetaminophen (Tylenol Tab*) 650 mg PO Q4H PRN PRN Reason: FEVER/PAIN Al Hydrox/Mg Hydrox/Simethicone (Maalox Plus*) 30 ml PO Q6H PRN PRN Reason: INDIGESTION Alprazolam (Xanax Tab*) 0.25 mg PO Q8H PRN PRN Reason: ANXIETY Last Admin: 06/05/18 18:57 Dose: 0.25 mg Aspirin (Aspirin 81 Mg Chew Tab*) 81 mg PO DAILY [facility] Last Admin: 06/06/18 10:34 Dose: Not Given Famotidine (Pepcid Tab*) 20 mg PO DAILY [facility] Last Admin: 06/06/18 10:34 Dose: Not Given Haloperidol Lactate (Haldol Inj Iv/Im*) 5 mg IV SLOW PU Q6H PRN PRN Reason: AGITATION Last Admin: 06/06/18 08:00 Dose: 5 mg Hydralazine HCl (Apresoline Iv*) 10 mg IV SLOW PU Q4HR PRN PRN Reason: SBP > 180 Last Admin: 06/06/18 05:04 Dose: 10 mg Sodium Chloride (Ns 0.9% 1000 Ml) 1,000 mls @ 100 mls/hr IV PER RATE [facility] Levothyroxine Sodium (Synthroid Tab*) 50 mcg PO DAILY@0600 [facility] Last Admin: 06/06/18 05:09 Dose: Not Given Meclizine HCl (Antivert Tab*) 25 mg PO Q8HR PRN PRN Reason: DIZZINESS Mometasone Furoate (Asmanex 220 Mcg Mdi *) 1 puff INH QPM [facility] Last Admin: 06/05/18 20:38 Dose: 1 puff Ondansetron HCl (Zofran Inj*) 4 mg IV Q6H PRN PRN Reason: NAUSEA Trazodone HCl (Desyrel Tab*) 50 mg PO BEDTIME PRN PRN Reason: INSOMNIA Vital Signs - 8 hr 06/06/18 06/06/18 06/06/18 10:00 10:18 11:00 Temperature Pulse Rate 57 Respiratory 22 17 20 Rate Blood Pressure (mmHg) O2 Sat by Pulse 95 Oximetry 06/06/18 06/06/18 06/06/18 11:28 11:30 12:00 Temperature 98.5 F Pulse Rate 67 72 Respiratory 18 16 19 Rate Blood Pressure (mmHg) O2 Sat by Pulse 92 96 Oximetry 06/06/18 06/06/18 06/06/18 12:49 13:00 13:02 Temperature Pulse Rate 68 46 46 Respiratory 18 18 16 Rate Blood Pressure 161/47 145/59 (mmHg) O2 Sat by Pulse 96 97 98 Oximetry 06/06/18 06/06/18 06/06/18 13:32 14:00 14:01 Temperature Pulse Rate 59 75 92 Respiratory 14 18 16 Rate Blood Pressure 157/40 178/51 (mmHg) O2 Sat by Pulse 98 95 96 Oximetry 06/06/18 06/06/18 06/06/18 14:50 15:00 15:14 Temperature Pulse Rate Respiratory 24 19 19 Rate Blood Pressure (mmHg) O2 Sat by Pulse Oximetry 06/06/18 06/06/18 15:41 16:01 Temperature Pulse Rate 87 Respiratory 19 19 Rate Blood Pressure 153/47 132/44 (mmHg) O2 Sat by Pulse 94 Oximetry Oxygen Devices in Use Now: Nasal Cannula Appearance: lying flat, easy to wake, NAD Eyes: No Scleral Icterus, PERRLA Ears/Nose/Mouth/Throat: NL Teeth, Lips, Gums, Clear Oropharnyx Neck: NL Appearance and Movements; NL JVP, Trachea Midline Respiratory: Symmetrical Chest Expansion and Respiratory Effort Cardiovascular: - - karen, regular Abdominal: NL Sounds; No Tenderness; No Distention, No Hepatosplenomegaly Lymphatic: No Cervical Adenopathy Neurological: - - AOx0, aggitated when woken up Result Diagrams: 06/06/18 15:32 06/06/18 15:32 Microbiology and Other Data: Microbiology 06/05/18 01:33 Nasal Screen MRSA (PCR) - Final Nasal Mrsa Not Detected Assess/Plan/Problems-Billing Assessment: 88W with HFpEF, HTN, hypothyroid, anxiety, obesity, NAFLD, presents as a direct transfer from [place] for 2nd degree heart block, after presenting there with SOB and chest pain with hospital stay notable for altered mental status - Patient Problems (1) Altered mental state Comment: MRI neg for acute CVA began s/p cath and ICU transfer as well as meications necessary for procedure suspect acute icu acquire delerium in setting of acute illness as well as in setting of medications limit sedating medications (2) Mobitz (type) II atrioventricular block Comment: Had history of positive stress test, but [facility] here without significant CAD. - pending placement of PPM - avoid rate-limiting medications - appreciate cardiology - continue on tele with ICU level of monitoring (3) Anxiety Comment: cont home alprazolam PRN not needed with altered mental status (4) Diastolic heart failure Comment: Seen on echo here, and has history of this but doesn't seem to have been on home diuretics. Received IV Lasix at OSH. - monitor volume status - currently holding further diuretics - monitor lytes and replete prn (5) Hypertension Comment: Allowing for higher BP until patient receive PPM. hydralazine prn - avoid rate-limiting medications (6) Hypothyroid Comment: Will decrease levothyroxine given low-normal TSH (goal for 88 year old is high-normal or mildly elevated). - cont levothyroxine 25mcg, recheck TSH in early July
[2018-06-06] MEDS ORDERED: Clindamycin VIAL(*) 150 MG in NS 0.9% 50 ML* 50 ML IVPB ONE (18:06)
[2018-06-06] MEDS: Mometasone 220 MCG MDI INH SCH (19:44)
[2018-06-06] MEDS: Metoprolol Succinate XL TAB* 50 MG PO SCH (20:16)
[2018-06-06] MEDS: CLINDAMYCIN IV 300 MG in D5W IV SCH (20:25)
[2018-06-07] MEDS: CLINDAMYCIN IV 300 MG in D5W IV SCH ×2 (06:00→11:46)
[2018-06-07] MEDS: Levothyroxine TAB* 25 MCG TAB PO SCH (07:26)
[2018-06-07] MEDS: Aspirin 81 mg CHEW TAB* 81 MG TAB.CHEW PO SCH (08:02)
[2018-06-07] MEDS: Famotidine TAB* 20 MG PO SCH (08:02)
[2018-06-07] MEDS: Metoprolol Succinate XL TAB* 50 MG PO SCH (08:02)
[2018-06-07] MEDS ORDERED: Furosemide IV* 10 MG/ML VIAL (40 MG) IV SLOW PU ONE (09:02)
[2018-06-07] MEDS: Acetaminophen TAB* 325 MG PO PRN (09:07)
[2018-06-07] MEDS ORDERED: Metoprolol Tartrate TAB* 50 mg PO ONE (16:54)
[2018-06-07] MEDS ORDERED: Metoprolol Tartrate TAB* 25 MG PO ONE (16:55)
--- NOTE | 2018-06-07 17:01 | PN ---
Subjective Date of Service: 06/07/18 Interval History: Seen this AM, care discussed with son on phone Mental status back to baseline AOx3 Life advice is eat 2 spoons of peanutbutter and an onion a day Objective Active Medications: Acetaminophen (Tylenol Tab*) 650 mg PO Q4H PRN PRN Reason: FEVER/PAIN Last Admin: 06/07/18 09:07 Dose: 650 mg Al Hydrox/Mg Hydrox/Simethicone (Maalox Plus*) 30 ml PO Q6H PRN PRN Reason: INDIGESTION Alprazolam (Xanax Tab*) 0.25 mg PO Q8H PRN PRN Reason: ANXIETY Last Admin: 06/05/18 18:57 Dose: 0.25 mg Aspirin (Aspirin 81 Mg Chew Tab*) 81 mg PO DAILY [facility] Last Admin: 06/07/18 08:02 Dose: 81 mg Famotidine (Pepcid Tab*) 20 mg PO DAILY [facility] Last Admin: 06/07/18 08:02 Dose: 20 mg Levothyroxine Sodium (Synthroid Tab*) 50 mcg PO DAILY@0600 [facility] Last Admin: 06/07/18 07:26 Dose: 50 mcg Mometasone Furoate (Asmanex 220 Mcg Mdi *) 1 puff INH QPM [facility] Last Admin: 06/06/18 19:44 Dose: Not Given Ondansetron HCl (Zofran Inj*) 4 mg IV Q6H PRN PRN Reason: NAUSEA Trazodone HCl (Desyrel Tab*) 50 mg PO BEDTIME PRN PRN Reason: INSOMNIA Vital Signs - 8 hr 06/07/18 06/07/18 06/07/18 09:00 09:01 09:28 Temperature Pulse Rate 96 97 Respiratory 23 23 28 Rate Blood Pressure 152/51 159/79 (mmHg) O2 Sat by Pulse 93 94 Oximetry 06/07/18 06/07/18 06/07/18 10:00 10:24 11:00 Temperature Pulse Rate 101 103 102 Respiratory 15 23 23 Rate Blood Pressure 145/68 129/67 (mmHg) O2 Sat by Pulse 94 93 94 Oximetry 06/07/18 06/07/18 06/07/18 12:00 13:00 14:00 Temperature 98.5 F Pulse Rate 114 109 114 Respiratory 25 25 29 Rate Blood Pressure 108/60 119/63 (mmHg) O2 Sat by Pulse 93 94 96 Oximetry 06/07/18 06/07/18 06/07/18 14:01 15:00 15:01 Temperature Pulse Rate 107 109 Respiratory 23 19 19 Rate Blood Pressure 154/67 128/55 (mmHg) O2 Sat by Pulse 94 93 Oximetry 06/07/18 06/07/18 16:00 16:01 Temperature 97.7 F Pulse Rate 117 112 Respiratory 23 24 Rate Blood Pressure 103/75 (mmHg) O2 Sat by Pulse 94 93 Oximetry Oxygen Devices in Use Now: Nasal Cannula - 4L Appearance: interactive, NAD Eyes: No Scleral Icterus, PERRLA Ears/Nose/Mouth/Throat: NL Teeth, Lips, Gums, Clear Oropharnyx Neck: NL Appearance and Movements; NL JVP, Trachea Midline Respiratory: Symmetrical Chest Expansion and Respiratory Effort, - - rales in bases Cardiovascular: RRR Abdominal: NL Sounds; No Tenderness; No Distention, No Hepatosplenomegaly Extremities: - - left chest PPM Skin: - - right forearm IV erytehmatous Neurological: Alert and Oriented x 3 Result Diagrams: 06/06/18 15:32 06/06/18 15:32 Microbiology and Other Data: Microbiology 06/05/18 01:33 Nasal Screen MRSA (PCR) - Final Nasal Mrsa Not Detected Assess/Plan/Problems-Billing Assessment: 88W with HFpEF, HTN, hypothyroid, anxiety, obesity, NAFLD, presents as a direct transfer from [place] for 2nd degree heart block, after presenting there with SOB and chest pain with hospital stay notable for altered mental status - Patient Problems (1) Altered mental state Comment: MRI neg for acute CVA suspect acute icu acquire delerium in setting of acute illness as well as in setting of medications Resolved (2) Mobitz (type) II atrioventricular block Comment: Had history of positive stress test, but [facility] here without significant CAD. PPM 06/06 with [place] (3) Anxiety Comment: cont home alprazolam PRN not needed with altered mental status (4) Diastolic heart failure Comment: Seen on echo here, and has history of this but doesn't seem to have been on home diuretics. Received IV Lasix at OSH. 40 IV lasix this AM reasses volume status in AM and dose accordingly [place] in place until tomorrow. [place] out in AM after completed diuresis (5) Hypertension Comment: restarted metoprolol but at lower dose uptitrate as needed lasix x1 today 06/07 (6) Hypothyroid Comment: Will decrease levothyroxine given low-normal TSH (goal for 88 year old is high-normal or mildly elevated). - cont levothyroxine 25mcg, recheck TSH in early July Status and Disposition: out of ICU 06/07
[2018-06-07] MEDS: Mometasone 220 MCG MDI INH SCH (19:50)
[2018-06-08] MEDS: Levothyroxine TAB* 25 MCG TAB PO SCH (04:59)
[2018-06-08] MEDS: Famotidine TAB* 20 MG PO SCH (08:52)
[2018-06-08] MEDS: Aspirin 81 mg CHEW TAB* 81 MG TAB.CHEW PO SCH (08:52)
[2018-06-08] MEDS: Metoprolol Succinate XL TAB* 50 MG PO SCH (08:52)
[2018-06-08] MEDS ORDERED: Metoprolol Succinate XL TAB* 100 MG PO SCH (09:00)
[2018-06-08] MEDS ORDERED: cloNIDine TAB* 0.1 MG PO SCH (10:00)
--- NOTE | 2018-06-08 10:31 | OP ---
CC: Hospitalist; Primary Care. OPERATIVE REPORT: DATE OF THE IMPLANT: 06/06/18 DATE OF : [birth year] SURGEON: Maggie Mendoza MD. ANESTHESIA: MAC. PRE-OP DIAGNOSIS: Second degree heart block. POST-OP DIAGNOSES: Second degree heart block and supraventricular tachycardia. OPERATIVE PROCEDURE: Pacemaker implantation. ESTIMATED BLOOD LOSS: Less than 5 cc. COMPLICATIONS: None . DESCRIPTION OF PROCEDURE: The indications risks and benefits have been discussed with the patient in the presence of many of her family the day prior to the implantation and she had been amenable to pr oceeding. The patient had had delirium and mentation changes in the intervening 24 hours and additio nal discussions with the patient's family were made, Neurology had been consulted and decision was yee lerner to proceed. The patient is right-handed and the left subclavian fossa was prepped and draped in the usual sterile fashion. Throughout the procedure the patient received a total of 6 mg Versed and 75 mcg of fentany l as well 30 cc of 1% lidocaine for local anesthesia. The patient received 10 cc of radiopaque dye i n the left upper extremity, outlining the left axillary and left subclavian vein. Following local an esthesia a 2.5-cm incision was made in the subclavian fossa and using Bovie and blunt dissection the incision was extended to the level of the pectoralis muscle. Additional lidocaine was infused inferio rly medially and using blunt dissection, a small pocket was fashioned. Using a modified Seldinger technique the left subclavian vein was cannulated. Guidewire inserted usin g fluoroscopic guidance and the procedure was repeated with the second guidewire. Using an introduce r technique the right ventricular lead was guided into the right ventricular apex and actively fixed in place. It took 2 tries to get good thresholds. Following this, using the second guidewire in an introducer technique the atrial lead was guided into the right atrial appendage and actively fixed in place. Intermittently, the patient was in supraventricular tachycardia with the lead placement and obtaining thresholds had to be done around the tachycardia, but pacing and sensing thresholds were go od to excellent. The leads were then sewn into the pocket taking care to ensure adequate extra lead for movement. The pocket was then copiously irrigated, the leads were attached to the generator. The generator was pl aced in the pocket and the incision was closed using 2 layers of resorbable suture, 2-0 followed by 4 -0, followed by rohini and external dressing. Pacing and sensing thresholds were rechecked and foun d to be good. The patient had been agitated throughout the procedure requiring incremental increases in sedation, but no complications, and she was hemodynamically stable throughout the procedure and t hen transferred back to the intensive care unit. CONCLUSION: Successful pacemaker implantation. FINDINGS: System is an MRI compatible system. The device is a LinguaNext W1DR01, serial number [id number], programmed in DDD mode with a low rate of 60 beats per minute, upper tracking rate of 100 beats a minute (SVT was 130 beats a minute). The right atrial lead was Medtronic model 5076-450 number [id number]. The right ventricular lead was Medtronic model 5076-527 serial number [id number]. The atrial lead impedance was 552 ohms with P-wave sensed at 1.9 mV and an atrial pacing threshold of 0.3 V and 0.5 msec, R waves are sensed of 4 mV of ventricular lead impedance 880 ohms and the ventri cular pacing threshold was 0.9 V at 0.5 msec. Data from the pocket showed R-waves sensed at 0.8 mV with atrial pacing threshold of 437 ohms and atr ial pacing threshold of 0.75 V at 0.4 milliseconds and R-waves are sensed at 4.5 mV with a lead imped ance of 798 ohms and ventricular pacing threshold of 1 volt at 0.4 msec. [id number]/[facility] #: [id number]
[2018-06-08] MEDS ORDERED: Furosemide IV* 10 MG/ML 2 ML VIAL (20 MG) IV SLOW PU ONE (10:57)
[2018-06-08] MEDS: Enoxaparin(*) 40 MG/0.4 ML SYR SUBCUT SCH (11:26)
--- NOTE | 2018-06-08 13:29 | PN ---
Subjective Date of Service: 06/08/18 Interval History: Interactive and pleasant No pain Denies CP/SOB, N/V Discussed need for [facility] and she is amendable - she would prefer [place] if possible Objective Active Medications: Acetaminophen (Tylenol Tab*) 650 mg PO Q4H PRN PRN Reason: FEVER/PAIN Last Admin: 06/07/18 09:07 Dose: 650 mg Al Hydrox/Mg Hydrox/Simethicone (Maalox Plus*) 30 ml PO Q6H PRN PRN Reason: INDIGESTION Alprazolam (Xanax Tab*) 0.25 mg PO Q8H PRN PRN Reason: ANXIETY Last Admin: 06/05/18 18:57 Dose: 0.25 mg Aspirin (Aspirin 81 Mg Chew Tab*) 81 mg PO DAILY [facility] 234 BEDS AT [facility] Last Admin: 06/08/18 08:52 Dose: 81 mg Clonidine HCl (Catapres Tab*) 0.2 mg PO BID [facility]S [facility]CLUDE 234 BEDS AT THE [facility] Last Admin: 06/08/18 11:26 Dose: 0.2 mg Enoxaparin Sodium (Lovenox(*)) 40 mg SUBCUT Q24H [facility]S [facility]CLUDE 234 BEDS AT THE [facility] Last Admin: 06/08/18 11:26 Dose: 40 mg Famotidine (Pepcid Tab*) 20 mg PO DAILY [facility] 234 BEDS AT THE [facility] Last Admin: 06/08/18 08:52 Dose: 20 mg Levothyroxine Sodium (Synthroid Tab*) 50 mcg PO DAILY@0600 [facility] 234 BEDS AT [facility] Last Admin: 06/08/18 04:59 Dose: 50 mcg Metoprolol Succinate (Toprol Xl Tab*) 75 mg PO DAILY [facility] 234 BEDS AT [facility] Last Admin: 06/08/18 08:52 Dose: 75 mg Mometasone Furoate (Asmanex 220 Mcg Mdi *) 1 puff INH QPM [facility] 234 BEDS AT [facility] Last Admin: 06/07/18 19:50 Dose: 1 puff Ondansetron HCl (Zofran Inj*) 4 mg IV Q6H PRN PRN Reason: NAUSEA Trazodone HCl (Desyrel Tab*) 50 mg PO BEDTIME PRN PRN Reason: INSOMNIA Vital Signs - 8 hr 06/08/18 06/08/18 06/08/18 08:00 08:30 08:47 Temperature 97.8 F Pulse Rate 45 98 Respiratory 18 18 Rate Blood Pressure 186/47 160/78 (mmHg) O2 Sat by Pulse 93 Oximetry 06/08/18 06/08/18 11:22 12:00 Temperature 98.6 F 98.2 F Pulse Rate 99 99 Respiratory 18 18 Rate Blood Pressure 149/53 150/67 (mmHg) O2 Sat by Pulse 95 95 Oximetry Oxygen Devices in Use Now: Nasal Cannula - 4L at baseline Appearance: NAD Eyes: No Scleral Icterus, PERRLA Ears/Nose/Mouth/Throat: NL Teeth, Lips, Gums, Clear Oropharnyx Neck: NL Appearance and Movements; NL JVP, Trachea Midline Respiratory: Symmetrical Chest Expansion and Respiratory Effort, Clear to Auscultation Cardiovascular: RRR Abdominal: NL Sounds; No Tenderness; No Distention, No Hepatosplenomegaly Extremities: - - trace LE edema, right groin c/d/i no hematoma bruit Neurological: Alert and Oriented x 3, - - pleasant, conversant Result Diagrams: 06/06/18 15:32 06/06/18 15:32 Microbiology and Other Data: Microbiology 06/05/18 01:33 Nasal Screen MRSA (PCR) - Final Nasal Mrsa Not Detected Assess/Plan/Problems-Billing Assessment: 88W with HFpEF, HTN, hypothyroid, anxiety, obesity, NAFLD, presents as a direct transfer from [place] for 2nd degree heart block, after presenting there with SOB and chest pain with hospital stay notable for altered mental status now resolved - Patient Problems (1) Mobitz (type) II atrioventricular block Comment: Had history of positive stress test, but [facility] here without significant CAD. PPM 06/06 with [place] left arm immobilized (2) Altered mental state Comment: MRI neg for acute CVA suspect acute icu acquired delerium in setting of acute illness as well as in setting of medications Resolved (3) Anxiety Comment: cont home alprazolam PRN (4) Diastolic heart failure Comment: Seen on echo here and has history of this but doesn't seem to have been on home diuretics. 40 IV lasix this AM again reasses volume status in AM and dose accordingly [place] out today 06/08 (5) Hypertension Comment: restarted metoprolol increased to 75 mg daily but still less than that in med rec uptitrate as needed (6) Hypothyroid Comment: Will decrease levothyroxine given low-normal TSH (goal for 88 year old is high-normal or mildly elevated). - cont levothyroxine 25mcg, recheck TSH in early July (7) DVT (deep venous thrombosis) Comment: lovenox Status and Disposition: out of ICU 06/07 arrange for dc to [facility]
[2018-06-08] MEDS: Mometasone 220 MCG MDI INH SCH (20:23)
[2018-06-09] MEDS: Acetaminophen TAB* 325 MG PO PRN (01:11)
[2018-06-09] MEDS: Levothyroxine TAB* 25 MCG TAB PO SCH (05:28)
[2018-06-09] MEDS: Famotidine TAB* 20 MG PO SCH (09:10)
[2018-06-09] MEDS: Aspirin 81 mg CHEW TAB* 81 MG TAB.CHEW PO SCH (09:10)
[2018-06-09] MEDS: Metoprolol Succinate XL TAB* 50 MG PO SCH (09:10)
[2018-06-09] MEDS: Enoxaparin(*) 40 MG/0.4 ML SYR SUBCUT SCH (11:20)
--- NOTE | 2018-06-09 15:24 | PN ---
Subjective Date of Service: 06/09/18 Interval History: VS: WNL; on4L NC Tele: Paced Pt states that she feels "wonderful." Sge does admit to tiring easily, stating that it is because she is not moving around as much as usual. She has been up with use of walker, side walker, or cane. She denies CP, SOB. She denies abd pain, n/v/d/c, pain in LE. She denies pain in groin at cath insertion site. Objective Active Medications: Acetaminophen (Tylenol Tab*) 650 mg PO Q4H PRN Al Hydrox/Mg Hydrox/Simethicone (Maalox Plus*) 30 ml PO Q6H PRN Alprazolam (Xanax Tab*) 0.25 mg PO Q8H PRN Aspirin (Aspirin 81 Mg Chew Tab*) 81 mg PO DAILY [facility] Enoxaparin Sodium (Lovenox(*)) 40 mg SUBCUT Q24H [facility] Famotidine (Pepcid Tab*) 20 mg PO DAILY [facility] Levothyroxine Sodium (Synthroid Tab*) 50 mcg PO DAILY@0600 [facility] Metoprolol Succinate (Toprol Xl Tab*) 75 mg PO DAILY [facility] Mometasone Furoate (Asmanex 220 Mcg Mdi *) 1 puff INH QPM [facility] Ondansetron HCl (Zofran Inj*) 4 mg IV Q6H PRN Trazodone HCl (Desyrel Tab*) 50 mg PO BEDTIME PRN Vital Signs: Temp Pulse Resp BP Pulse Ox 97.4 F 65 16 130/44 100 06/09/18 11:32 06/09/18 11:32 06/09/18 11:32 06/09/18 11:32 06/09/18 11:32 Oxygen Devices in Use Now: Nasal Cannula Appearance: Pt is sitting up in bed. She is in no acute distress. She appears well, comfortable. Eyes: No Scleral Icterus, PERRLA Ears/Nose/Mouth/Throat: NL Teeth, Lips, Gums, Clear Oropharnyx, Mucous Membranes Moist Neck: NL Appearance and Movements; NL JVP, Trachea Midline Respiratory: Symmetrical Chest Expansion and Respiratory Effort, Clear to Auscultation Cardiovascular: NL Sounds; No Murmurs; No JVD, RRR, No Edema Abdominal: NL Sounds; No Tenderness; No Distention, No Hepatosplenomegaly Extremities: No Edema, No Clubbing, Cyanosis, - - R groin cath site with CDI dressing Neurological: Alert and Oriented x 3 Result Diagrams: 06/06/18 15:32 06/06/18 15:32 Microbiology and Other Data: Microbiology 06/05/18 01:33 Nasal Screen MRSA (PCR) - Final Nasal Mrsa Not Detected Assess/Plan/Problems-Billing Assessment: 88W with HFpEF, HTN, hypothyroid, anxiety, obesity, NAFLD, presents as a direct transfer from [place] for 2nd degree heart block, after presenting there with SOB and chest pain with hospital stay notable for altered mental status now resolved. - Patient Problems (1) Mobitz (type) II atrioventricular block Comment: -Had history of positive stress test, but [facility] here without significant CAD. -PPM 06/06 with [facility] -Left arm immobilized (2) Diastolic heart failure Comment: -Seen on echo here and has history of this but doesn't seem to have been on home diuretics. -Pt appears euvolemic with lungs CTAB, moist mucous membranes, without LE edema -[place] out today 06/08 (3) Hypertension Comment: -BP controlled -Continue Metoprolol 75 (4) Hypothyroid Comment: -Will decrease levothyroxine given low-normal TSH (goal for 88 year old is high- normal or mildly elevated). - cont levothyroxine 50mcg, recheck TSH in early July (5) Altered mental state Comment: -Resolved -MRI neg for acute CVA -Suspect acute icu acquired delerium in setting of acute illness as well as in setting of medications (6) Anxiety Comment: -cont home alprazolam PRN (7) DVT prophylaxis Comment: -Lovenox 40 Status and Disposition: out of ICU 06/07 Likely d/c to [facility] Bed tomorrow a.m.
[2018-06-09] MEDS: Mometasone 220 MCG MDI INH SCH (20:20)
[2018-06-10] MEDS: Levothyroxine TAB* 25 MCG TAB PO SCH (05:35)
[2018-06-10 08:14] VITALS: BP 146/53
[2018-06-10] MEDS: Famotidine TAB* 20 MG PO SCH (09:20)
[2018-06-10] MEDS: Metoprolol Succinate XL TAB* 50 MG PO SCH (09:22)
[2018-06-10] MEDS: Aspirin 81 mg CHEW TAB* 81 MG TAB.CHEW PO SCH (09:24)
--- NOTE | 2018-06-10 10:44 | DS ---
DISCHARGE SUMMARY: DATE OF ADMISSION: 06/05/18 DATE OF DISCHARGE: 06/10/18 PRIMARY CARE PROVIDER: Dr. Jayshree Rene. 911 EMERGENCY DISPATCHER: Maggie Mendoza MD. ATTENDING PHYSICIAN: Berenice Smith DO.* (DICTATED BY [facility] ) PRIMARY DIAGNOSES: 1. Mobitz type II atrioventricular block, permanent pacemaker insertion with Dr. Mendoza. 2. Altered mental status, transient, resolved. SECONDARY DIAGNOSES: 1. Congestive heart failure, diastolic. 2. Hypertension. 3. Hypothyroidism. 4. Metabolic syndrome. 5. Morbid obesity. 6. Multinodular goiter. 7. Anxiety. 8. History of fatty liver disease. 9. History of small bowel obstruction. 10. History of esophageal stricture, status post dilatation. STUDIES AND PROCEDURES WHILE IN THE HOSPITAL: 1. Transthoracic echocardiogram, 06/05/18, summary: No previous study was available for comparison. Left ventricle cavity size is normal. Wall thickness is mildly increased, systolic function is normal. The estimated ejection fraction is 55% to 60%. Doppler parameters are consistent with abnormal left ventricular relaxation (grade 1 diastolic dysfunction). Right ventricle: The cavity size is moderately dilated. Left atrium: Atrium is mildly dilated. Mitral valve: There is mild regurgitation. Aortic valve: There is trivial regurgitation. Tricuspid valve: There is trivial regurgitation. Pulmonic valve: There is mild regurgitation. 2. Cardiac catheterization, 06/05/18. Overall assessment: No significant stenotic coronary artery disease with [id number] narrowing in the proximal and moderate narrowing in the mid LAD as described above. Increased left ventricular end-diastolic pressure noted suggesting the presence of decreased left ventricular diastolic compliance. 3. Brain CT, 06/06/18. Impression: Limited study. No acute intracranial pathology. 4. Brain MRI, 06/06/18. Impression: Limited study. No restricted diffusion to suggest acute infarct. 5. Chest x-ray, 06/06/18. Impression: No active cardiopulmonary disease is noted. 6. Chest x-ray, 06/06/18. Impression: Cardiomegaly with pulmonary vascular congestion. DISCHARGE MEDICATIONS: Home medications: 1. Ranitidine HCl 150 mg p.o. b.i.d. 2. Nitroglycerin tab 0.4 mg sublingual q.5 minutes p.r.n. 3. Metoprolol succinate XL 75 mg p.o. daily. 4. Meclizine 25 mg p.o. b.i.d. p.r.n. 5. Levothyroxine 50 mcg p.o. daily at 0600. 6. Cyanocobalamin 1000 mcg p.o. daily. 7. Cholecalciferol 1000 units p.o. daily. 8. Benzonatate cap 200 mg p.o. t.i.d. p.r.n. 9. Beclomethasone nasal spray 1 spray b.i.d. 10. Aspirin 81 mg p.o. daily. 11. Acetaminophen 650 mg p.o. q.4 hours p.r.n. pain. 12. Alprazolam 0.25 mg p.o. b.i.d. p.r.n. Discontinued home medication: Clonidine. Changed home medications: Metoprolol 100 mg, changed to 75 mg p.o. daily. HISTORY OF PRESENT ILLNESS/HOSPITAL COURSE: Ms. Clark is an 88-year-old female with a past medical history of CHF and hypertension, who was directly admitted to the ICU from [facility] due to positive troponins, shortness of breath, chest pain. She was admitted to [facility] for diuresis on 06/04/2018 after chest x-ray was obtained and suggestive of CHF. At the time, her EKG showed second-degree heart block, Mobitz type II. She was also found to be hypertensive with systolic blood pressure in the 200s. Initial troponins were negative, but repeat troponins were elevated and the patient complained of chest pain. She was then sent directly to the ICU at [facility] from [facility]. Once admitted to the ICU, her chest pain had resolved, but she reported nausea and was still found to be in heart block with heart rate in the 30s. Cardiology consult was ordered, echocardiogram, chest x-ray were ordered. The patient was found to be a candidate for pacemaker insertion due to heart block. This was performed on 06/08/18, with no issues. Due to elevated troponin, the patient was placed on a heparin drip and aspirin 81 mg. Left heart cath was performed, which showed no significant coronary artery disease. Heparin drip was stopped. During her stay, the patient was noted to have acute altered mental status. MRI was negative for CVA as was CT of the head. This was noted to have begun just after catheterization while the patient was in the ICU. Her altered mental status resolved without intervention and it was suspected that this was acute ICU acquired delirium with exacerbating factors of acute illness and sedating medications. The patient remained at baseline mentation for the duration of her stay. On the day of discharge, Ms. Clark denies chest pain and shortness of breath, fever, cough. She does admit to feeling weak when she stands. She states she tires easily and feels that this may be because she has not been moving around as much as usual. She denies abdominal pain, nausea, vomiting, diarrhea, constipation or pain in the calves or extremities. She has no pain in the right groin where catheter insertion occurred or in the left chest area where pacemaker insertion was performed. Ms. Clark is stable for discharge. PHYSICAL EXAMINATION: Vital signs are temperature 97.9 degrees Fahrenheit oral , heart rate 77, respiratory rate 24, oxygen saturation 95% on 2 L O2, the patient's baseline blood pressure 146/53. General: Ms. Clark is a well- developed, well-nourished, morbidly-obese elderly woman who is sitting up in bed. She is pleasant and appears content. She is in no acute distress. HEENT : Visual peralta are grossly intact. Extraocular movements are grossly intact. Sclerae without icterus. Hearing is slightly diminished on the left side. Oral mucous membranes are moist. Pharynx is clear. Neck with full range of motion. No lymphadenopathy. Cardiovascular: Regular rate and rhythm with S1 and S2 present. No murmurs, rubs, or gallops. No JVD. Telemetry; paced/NSR. Left upper anterior chest pacemaker insertion site is covered with clean, dry, intact dressing. When removed, there was no discharge or erythema. Jeremias intact and skin remains approximated. Respiratory: Symmetrical chest expansion. No use of accessory muscles. Lungs clear to auscultation. No rhonchi, wheezes, or rubs. Abdomen: Obese. Bowel sounds in all quadrants. Soft and nontender to palpation. No hepatosplenomegaly. Extremities: Skin is warm and smooth bilaterally. Radial and pedal pulses are palpable bilaterally. There is no clubbing, cyanosis, or edema. Right groin catheter insertion site without erythema or discharge. Dressing is clean, dry, and intact. Neuro : The patient is awake. She is alert and oriented x3. She is able to move all upper extremities. DISCHARGE PLAN: Ms. Clark will be discharged to [facility] bed. ACTIVITY: Left upper extremity precautions, including no lifting left arm over the head, no lifting more than 5 pounds, no activities that involve large movements are reaching with left arm, wear arm/shoulder immobilizer on left side for 3 to 4 weeks. Other than left upper extremity precautions, activity as tolerated. DIET: Heart-healthy. MEDICATIONS: As above. FOLLOWUP: 1. Follow up with primary care provider in 4 to 7 days. 2. Follow up with Cardiology on 06/17/18 at 10:45 at your primary location with Sabiha Bernstein NP. Staple removal will occur at this visit. 3. Return to the ER or nearest hospital if you experience any worsening of symptoms, shortness of breath, lightheadedness, dizziness, chest discomfort, high fevers, chills, night sweats, loss of consciousness, or any other worrisome signs or symptoms. This is a summarized report of a complex medical history and hospital stay. For further details, please see the entire medical record. TIME SPENT: Approximately 35 minutes was spent on this discharge, greater than half of that time was spent [id number] with the patient discussing discharge plans and instructions. [facility] [id number]/[facility] #: [id number] MTDD
== END 2018-06-10 10:30 | disposition swing bed (61) | DRG 243 ==
LOC: ICU 01:27 → MEDTELE 06-07 17:10
PROVIDERS: ADMIT Pediatrics; ATTEND Internal Medicine
PROC: B2111ZZ Fluoroscopy of Multiple Coronary Arteries using Low Osmolar Contrast (ICD-10-PCS; 2018-06-05)
PROC: 4A023N7 Measurement of Cardiac Sampling and Pressure, Left Heart, Percutaneous Approach (ICD-10-PCS; 2018-06-05)
PROC: 02H63JZ Insertion of Pacemaker Lead into Right Atrium, Percutaneous Approach (ICD-10-PCS; 2018-06-06)
PROC: 02HK3JZ Insertion of Pacemaker Lead into Right Ventricle, Percutaneous Approach (ICD-10-PCS; 2018-06-06)
PROC: 0JH606Z Insertion of Pacemaker, Dual Chamber into Chest Subcutaneous Tissue and Fascia, Open Approach (ICD-10-PCS; principal; 2018-06-06 11:30)
PROC: 5A09357 Assistance with Respiratory Ventilation, Less than 24 Consecutive Hours, Continuous Positive Airway Pressure (ICD-10-PCS; 2018-06-07)
DX: I44.1 Atrioventricular block, second degree (principal); I50.32 Chronic diastolic (congestive) heart failure; F05 Delirium due to known physiological condition; I11.0 Hypertensive heart disease with heart failure; I45.2 Bifascicular block; E66.01 Morbid (severe) obesity due to excess calories; F41.9 Anxiety disorder, unspecified; Z66 Do not resuscitate; I25.10 Atherosclerotic heart disease of native coronary artery without angina pectoris; R74.0 Nonspecific elevation of levels of transaminase and lactic acid dehydrogenase [LDH]; E78.5 Hyperlipidemia, unspecified; F32.9 Major depressive disorder, single episode, unspecified; E89.0 Postprocedural hypothyroidism; K76.0 Fatty (change of) liver, not elsewhere classified; K21.9 Gastro-esophageal reflux disease without esophagitis; G45.4 Transient global amnesia; I08.3 Combined rheumatic disorders of mitral, aortic and tricuspid valves; E88.81 Metabolic syndrome and other insulin resistance; E04.2 Nontoxic multinodular goiter; R47.1 Dysarthria and anarthria; Z68.38 Body mass index [BMI] 38.0-38.9, adult; Z88.8 Allergy status to other drugs, medicaments and biological substances; Z88.6 Allergy status to analgesic agent; Z88.5 Allergy status to narcotic agent; Z88.0 Allergy status to penicillin; Z91.013 Allergy to seafood; Z90.710 Acquired absence of both cervix and uterus; Z90.49 Acquired absence of other specified parts of digestive tract; I47.1 Supraventricular tachycardia
CPT/HCPCS: 33208; 36415; 70450; 70551; 71045; 71046; 80048; 80053; 80061; 81003; 81015; 82140; 82607; 82746; 83036; 83735; 83880; 84145; 84439; 84443; 84484; 85025; 85347; 85610; 85730; 87086; 87641; 93005; 93306; 93458; 94640; 94660; 99156; 99157; A9270-GY; C1785; C1887; C1892; C1898; G8978-GP-CK; G8979-GP-CJ; G8987-GO-CL; G8988-GO-CJ; J0360; J1630; J1644; J1650; J1940; J2060; J2250; J2405; J3010; J3490